=== PATIENT | male | born 1970 | race Caucasian/White ===

== ENCOUNTER 2017-03-29 05:31 | Emergency (ER) | payer OTHER ==
[~2017-03-29] VITALS: Ht 172.7 cm; Wt 68.0 kg
--- NOTE | 2017-03-29 05:31 | NUR ---
PT BIB SELF PT VERBALIZED AUDITORY HALLUCINATION AND SI SINCE 12 AM. PER PT PLANS TO TAKE A LOT OF DRUGS AND PILLS. DENIES ANY HI. PT CAME FROM [facility] REFERRED HERE FOR MEDICAL CLEARANCE PER PT . PLACED ON A GOWNED. REMOVED ALL BELONGINGS. AWAITING MD ORDER. VSS
--- NOTE | 2017-03-29 05:35 | NUR ---
TO BED 11 A 46 YO MALE BIB SELF AND PT VERBALIZED AUDITORY HALLUCINATION AND SI SINCE 12 AM. DENIES ANY HI. PER PATIENT HE "PLANS TO KILL HIMSELF BY OVERDOSING ON DRUGS." PATIENT IS AAOX3, AMBULATORY WITH STEADY GAIT. VSS. NO S/S OF ACUTE DISTRESS. INITIATED SAFETY AND SUICIDE PRECAUTIONS. GOWNED. BELONGINGS ACCOUNTED AND FROM PATIENT FOR SAFETY. ONGOING CLOSE MONITORING. AWAITING FOR ER MD SOLANO.
--- NOTE | 2017-03-29 06:03 | NUR ---
URINE SAMPLE COLLECTED SENT TO LAB
--- NOTE | 2017-03-29 06:05 | NUR ---
MINISTER AT BEDSIDE TO DRAW BLOOD.
[2017-03-29 06:17] LABS: BASOPHILS # (AUTO) 0.1 /CMM (0.0-0.2); BASOPHILS % (AUTO) 1.6 % (0.0-2.0); EOSINOPHILS # (AUTO) 0.1 /CMM (0.0-0.7); EOSINOPHILS % (AUTO) 3.2 % (0.0-6.0); HEMATOCRIT 43 % (39-51); HEMOGLOBIN 14.6 g/dL (13.5-17.5); LYMPHOCYTES # (AUTO) 1.8 /CMM (0.8-4.8); LYMPHOCYTES % (AUTO) 50.4 % (20.0-44.0); MEAN CORPUSCULAR HEMOGLOBIN 33 PG (26.0-33.0); MEAN CORPUSCULAR HGB CONC 34 g/dl (31.0-36.0); MEAN CORPUSCULAR VOLUME 96 fL (80-96); MONOCYTES # (AUTO) 0.4 /CMM (0.1-1.30); NEUTROPHILS # (AUTO) 1.2 /CMM (1.8-8.9); NEUTROPHILS % (AUTO) 33.8 % (43.0-81.0); PLATELET COUNT (AUTO) 121 /CMM (150-450); RDW COEFFICIENT OF VARIATION 15.6 (11.5-15.0); RED BLOOD CELL COUNT(AUTO) 4.44 MIL/uL (4.5-6.0); WHITE BLOOD COUNT (AUTO) 3.5 K/uL (4.3-11.0)
[2017-03-29 06:22] LABS: APPEARANCE,URINE CLEAR (CLEAR); BILIRUBIN,URINE NEGATIVE (NEGATIVE); BLOOD, URINE NEGATIVE Ery/uL (NEGATIVE); COLOR,URINE YELLOW (YELLOW); KETONES,URINE NEGATIVE (NEGATIVE); LEUKOCYTE ESTERASE ,URINE NEGATIVE (NEGATIVE); NITRITE, URINE NEGATIVE (NEGATIVE); PROTEIN,URINE NEGATIVE (NEGATIVE); UGLUCOSE NEGATIVE (NEGATIVE); UROBILINOGEN,URINE 0.2 EU/dL (0.2)
[2017-03-29 06:30] LABS: CALCIUM, SERUM 8.2 mg/dL (8.5-10.1); CARBON DIOXIDE 27 mmol/L (21-32); CHLORIDE 103 mmol/L (98-107); CREATININE 1.1 mg/dL (0.6-1.3); GLUCOSE 95 mg/dL (74-106); POTASSIUM 4.1 mmol/L (3.5-5.1); SODIUM SERUM 138 mmol/L (136-145); UREA NITROGEN, BLOOD 14 mg/dL (7-18)
--- NOTE | 2017-03-29 06:30 | NUR ---
HEAVY EQUIPMENT OPERATOR AT BEDSIDE
[2017-03-29] MEDS ORDERED: KETOROLAC TROMETHAMINE INJ 60 MG/2 ML VIAL IM ONE ×2 (06:33→07:00)
[2017-03-29 06:36] LABS: ALANINE AMINOTRANSFERASE 186 U/L (12-78); ALBUMIN 3.5 g/dL (3.4-5.0); ALKALINE PHOSPHATASE 187 U/L (46-116); ASPARTATE AMINOTRANSFERASE 289 U/L (15-37); BILIRUBIN,DIRECT 0.2 mg/dL (0.0-0.2); BILIRUBIN,TOTAL 0.4 mg/dL (0.2-1.0); SALICYLATE 7.2 mg/dL (2.8-20.0); TOTAL PROTEIN, SERUM 7.7 g/dL (6.4-8.2)
[2017-03-29 06:38] LABS: ACETAMINOPHEN 0 ug/ml (10-30); ALCOHOL, BLOOD < 3 mg/dL (0-0)
--- NOTE | 2017-03-29 07:01 | NUR ---
PT LEFT FOR CT VIA RNEY
[2017-03-29] MEDS ORDERED: TRIA60LO8 TP (07:20)
[2017-03-29] MEDS ORDERED: ACYC800T PO (07:20)
[2017-03-29] MEDS ORDERED: TEMA30CA5 PO (07:20)
[2017-03-29] MEDS ORDERED: FAMO20TA8 PO (07:20)
[2017-03-29] MEDS ORDERED: KETO120S2 TP (07:20)
[2017-03-29] MEDS ORDERED: FLUC200T PO (07:20)
[2017-03-29] MEDS ORDERED: ESCI20TA PO (07:20)
[2017-03-29] MEDS ORDERED: ALLO300T2 PO (07:20)
[2017-03-29] MEDS ORDERED: ONDA4SOL2 PO (07:20)
[2017-03-29] MEDS ORDERED: METH500T PO (07:20)
[2017-03-29] MEDS ORDERED: HALO2TAB PO (07:20)
[2017-03-29] MEDS ORDERED: TAPE100T2 PO (07:20)
[2017-03-29] MEDS ORDERED: SULF1TAB48 PO (07:20)
[2017-03-29] MEDS ORDERED: ELVI1TAB3 PO (07:20)
[2017-03-29] MEDS ORDERED: ALPR2TAB2 PO (07:20)
--- NOTE | 2017-03-29 07:20 | NUR ---
PT USES ANOTHER TOPICAL CREAM AT HOME FOR HIS FACE/SKIN. UNABLE TO FIND IT ON THE MED LIST.
--- NOTE | 2017-03-29 07:21 | NUR ---
REPORT GIVEN TO SHERIN GOLD FOR FRED.
[2017-03-29 08:00] VITALS: BP 131/85
--- NOTE | 2017-03-29 09:15 | NUR ---
Left Pinky RN voicemail regarding patient psych eval
--- NOTE | 2017-03-29 09:30 | NUR ---
CALLED FOR BREAKFAST TRAY
--- NOTE | 2017-03-29 11:49 | NUR ---
CALLED [facility] FOR TRANSPORT. ETA 1HR
--- NOTE | 2017-03-29 11:58 | NUR ---
GAVE REPORT TO ELIDA DUFF AT [facility].
--- NOTE | 2017-03-29 12:49 | NUR ---
[facility] HERE TO PICKED UP PT. DISCHARGE IN STABLE CONDITION TO ANOTHER PSYCH FACILITY
== END 2017-03-29 12:50 ==
LOC: ER 05:31
DX: Z00.8 Encounter for other general examination (principal); R05 Cough; R51 Headache; F32.9 Major depressive disorder, single episode, unspecified; F43.10 Post-traumatic stress disorder, unspecified; G40.909 Epilepsy, unspecified, not intractable, without status epilepticus; J44.9 Chronic obstructive pulmonary disease, unspecified; K21.9 Gastro-esophageal reflux disease without esophagitis; F25.9 Schizoaffective disorder, unspecified; Z88.8 Allergy status to other drugs, medicaments and biological substances; D49.6 Neoplasm of unspecified behavior of brain; F17.200 Nicotine dependence, unspecified, uncomplicated; R44.0 Auditory hallucinations
CPT/HCPCS: 36415; 70450; 71010; 80048; 80076; 80305; 80329; 81001; 85025; 96372; 99285; A4606; G0480 ×2; J1885; Z7610; 81000-TC; G6039-TC

== ENCOUNTER 2017-06-04 06:25 | Emergency (ER) | payer OTHER ==
[~2017-06-04] VITALS: Ht 175.3 cm; Wt 62.6 kg
[~2017-06-04 06:25] MED LIST: ACYC800T PO; ALLO300T2 PO; ALPR2TAB2 PO; ELVI1TAB3 PO; ESCI20TA PO; FAMO20TA8 PO; FLUC200T PO; HALO2TAB PO; KETO120S2 TP; METH500T PO; ONDA4SOL2 PO; SULF1TAB48 PO; TAPE100T2 PO; TEMA30CA5 PO; TRIA60LO8 TP
--- NOTE | 2017-06-04 06:40 | NUR ---
46 YO FEMALE BB SELF. PT IS ALERT X 3, STATES HE IS HERE FOR MEDICAL CLEARANCE, PT ONLY MEDICAL COMPLAINT IS ANXIETY. NAD NOTED, SKIN WARM AND DRY. WILL CONTINUE TO MONITOR, AWAITING ORDERS FROM PROVIDER
[2017-06-04] MEDS ORDERED: ALPRAZOLAM 0.5 MG TABLET ONE (07:11)
[2017-06-04] MEDS ORDERED: ESCITALOPRAM OXALATE (10 MG) 10 MG TABLET ONE (07:12)
[2017-06-04 07:13] LABS: BASOPHILS % (AUTO) 0.8 % (0.0-2.0); EOSINOPHILS # (AUTO) 0.3 /CMM (0.0-0.7); EOSINOPHILS % (AUTO) 4.5 % (0.0-6.0); HEMATOCRIT 47 % (39-51); HEMOGLOBIN 16.2 g/dL (13.5-17.5); LYMPHOCYTES # (AUTO) 2.6 /CMM (0.8-4.8); LYMPHOCYTES % (AUTO) 42.4 % (20.0-44.0); MEAN CORPUSCULAR HEMOGLOBIN 33 PG (26.0-33.0); MEAN CORPUSCULAR HGB CONC 34 g/dl (31.0-36.0); MEAN CORPUSCULAR VOLUME 96 fL (80-96); MONOCYTES # (AUTO) 0.7 /CMM (0.1-1.30); MONOCYTES % (AUTO) 11.4 % (2.0-12.0); NEUTROPHILS # (AUTO) 2.5 /CMM (1.8-8.9); NEUTROPHILS % (AUTO) 40.9 % (43.0-81.0); PLATELET COUNT (AUTO) 220 /CMM (150-450); RDW COEFFICIENT OF VARIATION 12.5 (11.5-15.0); RED BLOOD CELL COUNT(AUTO) 4.92 MIL/uL (4.5-6.0); WHITE BLOOD COUNT (AUTO) 6.1 K/uL (4.3-11.0)
[2017-06-04] MEDS: ALPRAZOLAM 0.25 MG TABLET PO ONE (07:18)
[2017-06-04] MEDS: ESCITALOPRAM OXALATE (10 MG) 10 MG TABLET PO ONE (07:18)
--- NOTE | 2017-06-04 07:18 | NUR ---
URINE SAMPLE COLLECTED SENT TO LAB
[2017-06-04 07:26] LABS: SODIUM SERUM 137 mmol/L (136-145)
[2017-06-04 07:27] LABS: CARBON DIOXIDE 26 mmol/L (21-32); CHLORIDE 99 mmol/L (98-107); GLUCOSE 90 mg/dL (74-106); POTASSIUM 4.2 mmol/L (3.5-5.1); UREA NITROGEN, BLOOD 15 mg/dL (7-18)
[2017-06-04 07:28] LABS: ALCOHOL, BLOOD < 3 mg/dL (0-0)
--- NOTE | 2017-06-04 08:05 | NUR ---
JOSE GIPSON RN CALLED [phone]. ETA ~ 60 MIN.
--- NOTE | 2017-06-04 09:23 | NUR ---
CASI AT BEDSIDE FOR EVAL
--- NOTE | 2017-06-04 09:29 | NUR ---
PSYCH [facility] FAXED BY CASI DUFF,PHYSICIAN ASSISTANT SURGERY TO [facility]. AND SO.CITLALI MCNALLY FOR ACCEPTANCE TO [facility]
--- NOTE | 2017-06-04 10:22 | NUR ---
CALLED TRANSPORT ETA IS 45 MIN PER NUNO
--- NOTE | 2017-06-04 11:13 | NUR ---
GAVE REPORT TO ROSARIO DUFF AT [facility] TRANSFER VIA [facility]
[2017-06-04 11:14] VITALS: BP 111/77
== END 2017-06-04 11:17 ==
LOC: ER 06:25
DX: F32.9 Major depressive disorder, single episode, unspecified (principal); F19.10 Other psychoactive substance abuse, uncomplicated; B20 Human immunodeficiency virus [HIV] disease; F43.10 Post-traumatic stress disorder, unspecified; J44.9 Chronic obstructive pulmonary disease, unspecified; K21.9 Gastro-esophageal reflux disease without esophagitis; Z88.8 Allergy status to other drugs, medicaments and biological substances; F17.200 Nicotine dependence, unspecified, uncomplicated
CPT/HCPCS: 36415; 80048-TC; 80305; 85025-TC; A4606; G0480; Z7610

== ENCOUNTER 2017-06-19 14:14 | Emergency (ER) | payer OTHER ==
[~2017-06-19] VITALS: Ht 172.7 cm; Wt 66.7 kg
--- NOTE | 2017-06-19 14:30 | NUR ---
PATIENT BIB RA FROM [facility] D/T REPORTED SEIZURE. PATIENT IS A/OX 2-3, BUT LETHARGIC. C/O GENERALIZED PAIN ALL OVER. BREATHING EVEN AND UNLABORED ON ROOM AIR. NO SOB. VITALS STABLE. SAFETY AND COMFORT MEASURES IN PLACE. AWAITING MD ORDERS.
[2017-06-19 14:48] LABS: BASOPHILS # (AUTO) 0.1 /CMM (0.0-0.2); EOSINOPHILS # (AUTO) 0.1 /CMM (0.0-0.7); EOSINOPHILS % (AUTO) 2.2 % (0.0-6.0); HEMATOCRIT 39 % (39-51); HEMOGLOBIN 12.6 g/dL (13.5-17.5); LYMPHOCYTES # (AUTO) 2.2 /CMM (0.8-4.8); LYMPHOCYTES % (AUTO) 34.4 % (20.0-44.0); MEAN CORPUSCULAR HEMOGLOBIN 31 PG (26.0-33.0); MEAN CORPUSCULAR HGB CONC 32 g/dl (31.0-36.0); MEAN CORPUSCULAR VOLUME 98 fL (80-96); MONOCYTES # (AUTO) 0.8 /CMM (0.1-1.30); NEUTROPHILS # (AUTO) 3.1 /CMM (1.8-8.9); NEUTROPHILS % (AUTO) 50.4 % (43.0-81.0); PLATELET COUNT (AUTO) 206 /CMM (150-450); RDW COEFFICIENT OF VARIATION 12.1 (11.5-15.0); WHITE BLOOD COUNT (AUTO) 6.3 K/uL (4.3-11.0)
--- NOTE | 2017-06-19 14:50 | NUR ---
NEW IV STARTED ON LAC, 20 G. BLOOD DRAWN AND SENT TO LAB.
[2017-06-19 14:59] LABS: CALCIUM, SERUM 8.6 mg/dL (8.5-10.1); CARBON DIOXIDE 28 mmol/L (21-32); CHLORIDE 103 mmol/L (98-107); CREATININE 1.2 mg/dL (0.6-1.3); GLUCOSE 75 mg/dL (74-106); SODIUM SERUM 137 mmol/L (136-145); UREA NITROGEN, BLOOD 20 mg/dL (7-18)
[2017-06-19] MEDS ORDERED: IV NS 0.9% 1,000 ML BAG IV ONE (15:00)
[2017-06-19 15:03] LABS: PROTHROMBIN TIME 10.4 SECS (9.5-12.7)
[2017-06-19 15:05] LABS: ALANINE AMINOTRANSFERASE 41 U/L (12-78); ALBUMIN 3.6 g/dL (3.4-5.0); ALKALINE PHOSPHATASE 98 U/L (46-116); ASPARTATE AMINOTRANSFERASE 57 U/L (15-37); BILIRUBIN,DIRECT 0.2 mg/dL (0.0-0.2); BILIRUBIN,TOTAL 0.6 mg/dL (0.2-1.0); TOTAL PROTEIN, SERUM 7.4 g/dL (6.4-8.2)
[2017-06-19 15:07] LABS: TROPONIN I < 0.017 ng/mL (0.00-0.056)
[2017-06-19 16:17] VITALS: BP 106/66
[2017-06-19 20:11] LABS: APPEARANCE,URINE Clear (CLEAR); BILIRUBIN,URINE SMALL (NEGATIVE); BLOOD, URINE Negative Ery/uL (NEGATIVE); COLOR,URINE Dark (YELLOW); KETONES,URINE Negative (NEGATIVE); LEUKOCYTE ESTERASE ,URINE Negative (NEGATIVE); NITRITE, URINE Negative (NEGATIVE); PH,URINE 5.5 (5.0-8.0); PROTEIN,URINE Negative (NEGATIVE); UGLUCOSE Negative (NEGATIVE); UROBILINOGEN,URINE 0.2 EU/dL (0.2)
[2017-06-19 20:25] LABS: BACTERIA,URINE None seen /HPF (None Seen); RBC,URINE 0-2 /HPF (0-2); SQUAMOUS EPITHELIAL CELL,UR Few /HPF (None Seen); WBC,URINE 0-2 /HPF (0-3)
--- NOTE | 2017-06-19 21:30 | NUR ---
PET TEAM AT BEDSIDE FOR PYSCH EVAL .
[2017-06-19] MEDS ORDERED: ACETAMINOPHEN 325 MG TABLET PO ONE (22:30)
[2017-06-19] MEDS ORDERED: ACETAMINOPHEN 325 MG TABLET ONE (22:43)
--- NOTE | 2017-06-20 13:18 | NUR ---
FOLLOWED UP WITH [facility] [place]. STILL NO MALE BEDS AVAILABLE
--- NOTE | 2017-06-21 01:30 | NUR ---
BREANNA AT BEDSIDE FOR TRANSPORT TO [facility].
== END 2017-06-21 01:57 ==
LOC: ER 14:15
DX: R07.89 Other chest pain (principal); B20 Human immunodeficiency virus [HIV] disease; G40.909 Epilepsy, unspecified, not intractable, without status epilepticus; F17.200 Nicotine dependence, unspecified, uncomplicated; F32.9 Major depressive disorder, single episode, unspecified; F43.10 Post-traumatic stress disorder, unspecified; J44.9 Chronic obstructive pulmonary disease, unspecified; K21.9 Gastro-esophageal reflux disease without esophagitis; R45.851 Suicidal ideations; Z88.8 Allergy status to other drugs, medicaments and biological substances; Z88.1 Allergy status to other antibiotic agents
CPT/HCPCS: 36415; 71010-TC; 80048-TC; 80076-TC; 80305; 81000-TC; 84484-TC; 85025-TC; 85730-TC; A4606; J7030; Z7610

== ENCOUNTER 2017-12-03 23:57 | Emergency (ER) | payer OTHER ==
[~2017-12-03] VITALS: Ht 172.7 cm; Wt 72.6 kg
--- NOTE | 2017-12-04 00:35 | NUR ---
BIBSELF, WANTS TO BE MEDICALLY CLEARED TO GO TO SO .CITLALI MCNALLY ADMITS TO ETOH AND SUBOXONE USE. PT AOX3 RR EVEN AND UNLABORED. NO SOB NOTED. NAD NOTED. NO NVD AT THIS TIME. URINE COLLECTED. PT DENIES SI/HI AT THIS TIME.
--- NOTE | 2017-12-04 00:39 | NUR ---
LAB AT BEDSIDE FOR BLOOD DRAW
--- NOTE | 2017-12-04 00:54 | NUR ---
PER SO CITLALI MCNALLY STATES PT LEFT FACILITY
--- NOTE | 2017-12-04 00:56 | NUR ---
ART AT BEDSIDE FOR EVAL.
[2017-12-04 01:23] LABS: BASOPHILS % (AUTO) 0.5 % (0.0-2.0); EOSINOPHILS % (AUTO) 0.5 % (0.0-6.0); HEMATOCRIT 46 % (39-51); HEMOGLOBIN 15.7 g/dL (13.5-17.5); LYMPHOCYTES # (AUTO) 2.2 /CMM (0.8-4.8); LYMPHOCYTES % (AUTO) 26.3 % (20.0-44.0); MEAN CORPUSCULAR HEMOGLOBIN 31 PG (26.0-33.0); MEAN CORPUSCULAR HGB CONC 34 g/dl (31.0-36.0); MEAN CORPUSCULAR VOLUME 91 fL (80-96); MONOCYTES % (AUTO) 11.7 % (2.0-12.0); NEUTROPHILS # (AUTO) 5.2 /CMM (1.8-8.9); PLATELET COUNT (AUTO) 215 /CMM (150-450); RDW COEFFICIENT OF VARIATION 13.9 (11.5-15.0); RED BLOOD CELL COUNT(AUTO) 5.09 MIL/uL (4.5-6.0); WHITE BLOOD COUNT (AUTO) 8.5 K/uL (4.3-11.0)
[2017-12-04 01:23] LABS: APPEARANCE,URINE CLEAR (CLEAR); BILIRUBIN,URINE NEGATIVE (NEGATIVE); BLOOD, URINE NEGATIVE Ery/uL (NEGATIVE); COLOR,URINE YELLOW (YELLOW); KETONES,URINE 2+ (NEGATIVE); LEUKOCYTE ESTERASE ,URINE NEGATIVE (NEGATIVE); NITRITE, URINE NEGATIVE (NEGATIVE); PROTEIN,URINE NEGATIVE (NEGATIVE); UGLUCOSE NEGATIVE (NEGATIVE); UROBILINOGEN,URINE 0.2 EU/dL (0.2)
[2017-12-04 01:31] LABS: BACTERIA,URINE None seen /HPF (None Seen); RBC,URINE 0-2 /HPF (0-2); SQUAMOUS EPITHELIAL CELL,UR Few /HPF (None Seen); WBC,URINE 0-2 /HPF (0-3)
[2017-12-04 01:32] LABS: MUCUS,URINE Few /LPF (None Seen)
[2017-12-04 01:41] LABS: CALCIUM, SERUM 9.1 mg/dL (8.5-10.1); CARBON DIOXIDE 27 mmol/L (21-32); CHLORIDE 100 mmol/L (98-107); GLUCOSE 94 mg/dL (74-106); SODIUM SERUM 138 mmol/L (136-145); UREA NITROGEN, BLOOD 19 mg/dL (7-18)
[2017-12-04 01:45] LABS: ACETAMINOPHEN 0 ug/ml (10-30); ALANINE AMINOTRANSFERASE 32 U/L (12-78); ALBUMIN 4.6 g/dL (3.4-5.0); ALKALINE PHOSPHATASE 135 U/L (46-116); ASPARTATE AMINOTRANSFERASE 28 U/L (15-37); BILIRUBIN,DIRECT 0.2 mg/dL (0.0-0.2); BILIRUBIN,TOTAL 0.7 mg/dL (0.2-1.0); SALICYLATE 6.1 mg/dL (2.8-20.0); TOTAL PROTEIN, SERUM 9.6 g/dL (6.4-8.2)
[2017-12-04 01:46] LABS: ALCOHOL, BLOOD < 3 mg/dL (0-0)
--- NOTE | 2017-12-04 04:48 | NUR ---
Patient discharged to home in stable condition. Written and verbal after care instructions given. Patient verbalizes understanding of instruction. ambulatory with a steady gait.
[2017-12-04 04:49] VITALS: BP 126/77
== END 2017-12-04 04:52 | disposition home or self-care (01) ==
LOC: ER 23:59
DX: R45.851 Suicidal ideations (principal); J44.9 Chronic obstructive pulmonary disease, unspecified; K21.9 Gastro-esophageal reflux disease without esophagitis; F20.9 Schizophrenia, unspecified; F32.9 Major depressive disorder, single episode, unspecified; F43.10 Post-traumatic stress disorder, unspecified; Z88.8 Allergy status to other drugs, medicaments and biological substances; Z88.1 Allergy status to other antibiotic agents; F17.200 Nicotine dependence, unspecified, uncomplicated; Z60.2 Problems related to living alone; Z79.899 Other long term (current) drug therapy
CPT/HCPCS: 36415; 80048; 80076; 80305; 80329; 81001; 85025; 99284; A4606; G0480 ×2; Z7610; 81000-TC

== ENCOUNTER 2018-10-18 11:37 | Inpatient (IN) | payer OTHER ==
[~2018-10-18] VITALS: Ht 167.6 cm; Wt 74.0 kg
[~2018-10-18 11:37] MED LIST changes: -KETO120S2 TP; +KETO120S3 TP
--- NOTE | 2018-10-18 11:50 | NUR ---
Chest Pain "woke up with pains in my chest this morning". PT IS AOX4, AMBULATORY, RESPIRATIONS EVEN AND UNLABORED. PAIN LEVEL 10/10 AND FEELINGS OF PRESSURE. APPEARS LETHARGIC. SKIN WARM TO TOUCH, DRY, INTACT. READY FOR EVAL. WILL CONT TO MONITOR.
--- NOTE | 2018-10-18 12:03 | NUR ---
WASHER AND CRUSHER TENDER MARSII AT BEDSIDE
--- NOTE | 2018-10-18 12:20 | NUR ---
LABS AND BLOOD CULTURES DRAWN AND SENT TO LAB
--- NOTE | 2018-10-18 12:27 | NUR ---
PROVIDED BLANKET AND ICE WATER FOR COMFORT
[2018-10-18 12:28] LABS: BASOPHILS % (AUTO) 0.8 % (0.0-2.0); EOSINOPHILS % (AUTO) 5.8 % (0.0-6.0); HEMATOCRIT 40 % (39-51); HEMOGLOBIN 13.4 g/dL (13.5-17.5); LYMPHOCYTES % (AUTO) 34.7 % (20.0-44.0); MEAN CORPUSCULAR HGB CONC 34 g/dl (31.0-36.0); MEAN CORPUSCULAR VOLUME 102 fL (80-96); MONOCYTES # (AUTO) 0.5 /CMM (0.1-1.30); MONOCYTES % (AUTO) 8.3 % (2.0-12.0); NEUTROPHILS % (AUTO) 50.4 % (43.0-81.0); PLATELET COUNT (AUTO) 222 /CMM (150-450); RED BLOOD CELL COUNT(AUTO) 3.92 MIL/uL (4.5-6.0); WHITE BLOOD COUNT (AUTO) 5.9 K/uL (4.3-11.0)
[2018-10-18 12:39] LABS: CALCIUM, SERUM 8.6 mg/dL (8.5-10.1); CARBON DIOXIDE 27 mmol/L (21-32); CHLORIDE 106 mmol/L (98-107); CREATININE 1.3 mg/dL (0.6-1.3); GLUCOSE 111 mg/dL (74-106); POTASSIUM 4.3 mmol/L (3.5-5.1); SODIUM SERUM 143 mmol/L (136-145); UREA NITROGEN, BLOOD 20 mg/dL (7-18)
--- NOTE | 2018-10-18 12:42 | NUR ---
XRAY AT BEDSIDE
[2018-10-18 12:52] LABS: ALANINE AMINOTRANSFERASE 47 U/L (12-78); ALKALINE PHOSPHATASE 141 U/L (46-116); ASPARTATE AMINOTRANSFERASE 36 U/L (15-37); B-TYPE NATRIURETIC PEPTIDE 259 PG/ML (0-125); BILIRUBIN,DIRECT 0.1 mg/dL (0.0-0.2); BILIRUBIN,TOTAL 0.4 mg/dL (0.2-1.0); TOTAL PROTEIN, SERUM 7.5 g/dL (6.4-8.2)
--- NOTE | 2018-10-18 12:55 | NUR ---
DR BALDERAS AT BEDSIDE
--- NOTE | 2018-10-18 13:15 | NUR ---
PT ASLEEP IN BED, VSS, EASILY AROUSED.
--- NOTE | 2018-10-18 13:36 | NUR ---
FLU SWAB COLLECTED AND SENT TO LAB. AWAITING URINE SAMPLE
[2018-10-18] MEDS ORDERED: ACETAMINOPHEN ES 500 MG TABLET ONE (13:50)
--- NOTE | 2018-10-18 13:53 | NUR ---
MONITOR SHOWING PT IS HYPOTENSIVE. SWITCHED TO LEFT ARM, RECHECK VITALS. BP LAYING 103/68 BP SITTING 89/57 BP STANDING 86/65. AWARE
[2018-10-18] MEDS ORDERED: ACETAMINOPHEN 325 MG TABLET PO ONE (14:00)
--- NOTE | 2018-10-18 14:10 | NUR ---
CESAR, SANDSTONE INSPECTOR REPAIRER AT BEDSIDE TO DISCUSS ADMISSION
--- NOTE | 2018-10-18 14:20 | NUR ---
PANEL CALLED. AWAITING CALL BACK FROM DR SOOD
[2018-10-18 14:22] LABS: APPEARANCE,URINE CLEAR (CLEAR); BILIRUBIN,URINE NEGATIVE (NEGATIVE); BLOOD, URINE NEGATIVE Ery/uL (NEGATIVE); COLOR,URINE YELLOW (YELLOW); KETONES,URINE NEGATIVE (NEGATIVE); LEUKOCYTE ESTERASE ,URINE NEGATIVE (NEGATIVE); NITRITE, URINE NEGATIVE (NEGATIVE); PH,URINE 6.5 (5.0-8.0); PROTEIN,URINE NEGATIVE (NEGATIVE); UGLUCOSE NEGATIVE (NEGATIVE); UROBILINOGEN,URINE 0.2 EU/dL (0.2)
[2018-10-18] MEDS ORDERED: ASPIRIN 325 MG TABLET ONE (14:27)
[2018-10-18] MEDS ORDERED: ASPIRIN 325 MG TABLET PO ONE (14:30)
[2018-10-18] MEDS ORDERED: IV NS 0.9% 1,000 ML BAG IV ONE ×2 (14:30→15:00)
--- NOTE | 2018-10-18 14:38 | NUR ---
PT TAKEN TO CT VIA RMANOJ.
--- NOTE | 2018-10-18 14:48 | NUR ---
PT RETURNED FROM CT RESTING IN [facility]
--- NOTE | 2018-10-18 15:31 | NUR ---
Patient is resting comfortably in bed with eyes closed. Easily aroused. VSS
--- NOTE | 2018-10-18 15:44 | NUR ---
REPORT GIVEN TO SHERIN COLES FOR 323-1 TELE
[2018-10-18] MEDS ORDERED: ACETAMINOPHEN 325 MG TABLET PO PRN (16:00)
[2018-10-18] MEDS ORDERED: MAG HYDROX/AL HYDROX/SIMETH 30 ML UDC PO PRN (16:00)
[2018-10-18] MEDS ORDERED: ONDANSETRON HCL 4 MG/5 ML SOLUTION PO SCH (16:00)
[2018-10-18] MEDS ORDERED: TRIAMCINOLONE ACETONIDE TP SCH (16:00)
[2018-10-18] MEDS ORDERED: ONDANSETRON HCL/PF 4 MG/2 ML VIAL IVP PRN (16:00)
[2018-10-18] MEDS ORDERED: Z GUARD REMEDY 2 OZ OINT TP PRN (16:00)
[2018-10-18] MEDS ORDERED: MAGNESIUM HYDROXIDE 30 ML UDC PO PRN (16:00)
--- NOTE | 2018-10-18 16:45 | NUR ---
TRANSFERRED PT TO 323-1 TELE WITH EMT
[2018-10-18 17:00] VITALS: BP 104/71
[2018-10-18] MEDS ORDERED: TAPENTADOL HYDROCHLORIDE 100 MG PO SCH (17:00)
--- NOTE | 2018-10-18 17:00 | NUR ---
TELE/RN OPENING NOTE THE PATIENT IS RECEIVED O ALCIDES BILLINGSLEY. ABLE TO TRANSFER SELF TO BED. ALERT AND ORIENTED X4. DENIES PAIN, DENIES SOB. RESPIRATION REGULAR AND UNLABORED. ORIENTATION IS GIVEN TO THE UNIT AND ROOM AND THE PATIENT VERBALIZED UNDERSTANDING. LAC G 20 PATENT AND SALINE LOCKED. BED LOW AND LOCKED. SIDE RAILS UP X2. WILL CONTINUE TO MONITOR.
[2018-10-18] MEDS: ALPRAZOLAM 1 MG TABLET PO SCH ×2 (17:20→18:02)
[2018-10-18] MEDS: METHOCARBAMOL (500MG) 500 MG TABLET PO SCH (18:02)
--- NOTE | 2018-10-18 18:36 | NUR ---
TELE/RN NOTE THE PATIENT ALERT AND ORIENTED X4. IN ROOM AIR AND DENIES SOB AT THIS TIME. RESPIRATION REGULAR AND UNLABORED. DENIES PAIN. IN NO APPARENT DISTRESS. LAC G 20 PATENT AND SALINE LOCKED. BED LOW AND LOCKED. SIDE RAILS UP X2. CALL LIGHT WITHIN REACH. WILL ENDORSE TO INSPECTOR OUTSIDE STEAM DISTRIBUTION.
[2018-10-18 20:00] VITALS: BP 94/60
--- NOTE | 2018-10-18 20:00 | NUR ---
RECIEVING NOTES: IN BED ASLEEP RESP EVEN AND UNLABORED RATE 18/*MIN. ROOM AIR. WHEN ARM LIGHTLY TOUCH AND NAME SPOKEN WOKE UP ALERT AND ORIENTATED, ASKING FOR PUDDING TWO!! HE IS SMILING. HE IS APACED 60 ON THE MONITOR. ALL CALL LIG WITHIN REACH.
[2018-10-18] MEDS ORDERED: HALOPERIDOL 1 MG TABLET PO SCH (22:00)
[2018-10-18] MEDS: HALOPERIDOL LACTATE 10 MG/5 ML UDC PO SCH (22:00)
--- NOTE | 2018-10-18 22:00 | NUR ---
BEHAVIIOR: informed the patient that we needed to check his belongings , this is policy, and we would do this right here in front of him. He became angry and verbally abusive calling the HIGH SCHOOL BAND TEACHER a LIAR, and that nurses were all drug users and just wanted to steal his medication," because this is what happened before". Yelling loudly and using foul language. Guard was able to take his trading assistant away. after 30 minutes of his anger and yelling he allowed me to count his medications and label for the pharmacist , he wanted me to place the receipts in the front of his chart, so I did, in the inside cover.. He refused the Haldol, stating this is for people who have psych issues. took the restoril and the one christine stating this doesn't do anything for him.. snack served and shortly after midnight was asleep.
[2018-10-18] MEDS: HYDROCODONE/APAP 5/325MG 1 EACH TABLET PO PRN (22:07)
[2018-10-18] MEDS: TEMAZEPAM 15 MG CAPSULE PO SCH ×2 (22:08→23:08)
--- NOTE | 2018-10-19 07:15 | NUR ---
REPORTING DEVELOPER INITIAL NOTES Report received at bedside. Patient received in bed, sleeping comfortably, easily aroused. Not in any type of distress. No facial grimacing or moaning noted. Denies chest pain at the moment. No SOB/labored breathing noted. On antiviral treatment for HIV/AIDS. Safety measures in place. Will continue to monitor and assess patient. Call light within reach. TELE: A-pacing 60
[2018-10-19 07:38] LABS: BASOPHILS % (AUTO) 1.3 % (0.0-2.0); EOSINOPHILS % (AUTO) 7.1 % (0.0-6.0); HEMATOCRIT 38 % (39-51); HEMOGLOBIN 12.7 g/dL (13.5-17.5); LYMPHOCYTES # (AUTO) 2.1 /CMM (0.8-4.8); LYMPHOCYTES % (AUTO) 53.5 % (20.0-44.0); MEAN CORPUSCULAR HGB CONC 34 g/dl (31.0-36.0); MEAN CORPUSCULAR VOLUME 102 fL (80-96); MONOCYTES # (AUTO) 0.4 /CMM (0.1-1.30); NEUTROPHILS % (AUTO) 27.1 % (43.0-81.0); PLATELET COUNT (AUTO) 184 /CMM (150-450); RED BLOOD CELL COUNT(AUTO) 3.67 MIL/uL (4.5-6.0); WHITE BLOOD COUNT (AUTO) 3.9 K/uL (4.3-11.0)
[2018-10-19 07:56] LABS: CALCIUM, SERUM 8.4 mg/dL (8.5-10.1); CREATININE 1.1 mg/dL (0.6-1.3); MAGNESIUM 2.1 mg/dL (1.8-2.4); PHOSPHORUS 3.4 mg/dL (2.5-4.9); POTASSIUM 4.3 mmol/L (3.5-5.1)
[2018-10-19 08:00] VITALS: BP 111/66
[2018-10-19 08:31] LABS: THYROID STIMULATING HORMONE 2.762 uIU/mL (0.358-3.74)
[2018-10-19 08:42] LABS: EOSINOPHILS % (MANUAL) 7 % (0-4); MONOCYTES % (MANUAL) 17 % (0-11.0); NEUTROPHILS % (MANUAL) 25 (42-76); REACTIVE LYMPHOCYTES 9 % (0-0)
[2018-10-19 08:43] LABS: LYMPHOCYTES % (MANUAL) 42 % (16-48)
[2018-10-19] MEDS: METHOCARBAMOL (500MG) 500 MG TABLET PO SCH ×3 (08:49→16:29)
[2018-10-19] MEDS: ALPRAZOLAM 1 MG TABLET PO SCH ×2 (08:49→16:29)
[2018-10-19] MEDS: SULFAMETH/TRIMETH 800/160 MG 1 UDTAB TABLET PO SCH (08:49)
[2018-10-19] MEDS: ACYCLOVIR 800 MG TABLET PO SCH (08:49)
[2018-10-19] MEDS: FAMOTIDINE (20 MG) 20 MG TABLET PO SCH (08:49)
[2018-10-19] MEDS: ESCITALOPRAM OXALATE (10 MG) 10 MG TABLET PO SCH (08:49)
[2018-10-19] MEDS: ALLOPURINOL 100 MG TABLET PO SCH (08:49)
[2018-10-19] MEDS ORDERED: FLUCONAZOLE (100 MG) 100 MG TABLET PO SCH (09:00)
[2018-10-19] MEDS ORDERED: [UNRECOGNIZED DRUG - OTHER] PO SCH (09:00)
--- NOTE | 2018-10-19 11:10 | NUR ---
MS RN NOTES Called Pharmacy ([facility]) to follow up on delivery for Nizoral Shampoo. Will wait for delivery.
[2018-10-19] MEDS: KETOCONAZOLE SHAMPOO 120 ML BOTTLE TP SCH (11:45)
--- NOTE | 2018-10-19 15:04 | NUR ---
MS SHERIN NOTES Sample Case Porter went to see patient. Per Sample Case Porter, patient refused [facility] and couple other shelters offered. Patient insisted to go back to [place] to undisclosed address. Addendum: 10/19/18 at 1518 by RUBY STEVE RN Patient verified if he is getting discharged today, on the day before All. Confirmed to patient that he is cleared to be discharge home. Patient started complaining, stating, "it's not right to be discharge on the day before All. At least release me on morning!"
--- NOTE | 2018-10-19 15:09 | NUR ---
MS RN NOTES Patient getting ready to shower before discharge. Patient requested to remove IV: cath tip intact with no bleeding noted. Covered with gauze and tape.
[2018-10-19 16:00] VITALS: BP 132/79
[2018-10-19] MEDS ORDERED: PERMETHRIN 5% CRM 60 GM TUBE TP ONE (16:00)
[2018-10-19] MEDS: HYDROCODONE/APAP 5/325MG 1 EACH TABLET PO PRN ×2 (16:36→21:10)
--- NOTE | 2018-10-19 18:29 | NUR ---
MS RN CLOSING NOTES Patient remained in bed, intermittently sleeping, easily aroused. Alert and oriented x4, verbally respponsive. Complained of pain with help of pain mgmt. Not in any type of distress. No SOB or labored breathing noted. Afebrile. All due meds given and tolerated. Kept patient clean and dry. Elimite cream applied @1600: ready to be washed after 8-12hours after. Okay to discharge after elimite cream wash off. All needs provided and met. Safety measures in place. Bed in locked and lowest position with call light within reach. Will endorse to oncoming shift nurse
[2018-10-19 20:00] VITALS: BP 100/63
--- NOTE | 2018-10-19 20:00 | NUR ---
MS/RN OPENING NOTES RECEIVED PATIENT IN BED, AWAKE, ALERT X3, ABLE TO VERBALIZE NEEDS, RESPONSIVE TO CARE, PLAN OF CARE DISCUSSED, ON ELIMATE CREAM APPLIED 1600, TO BE WASHED OFF 8 TO 12 HOURS BY 4 IN THE MORNING. ORDER FOR DISCHARGE BY MD, PATIENT REFUSED TO DISCHARGE TO A [facility]P AND PREFERRED TO BE BACK IN PREFERRED ADDRESS. CALL LIGHTS WITHIN REACH, BED LOCKED. PROVIDED SNACKS. RECEIVED ENDORSEMENT FORM AM RN FOR FRED.
[2018-10-19] MEDS: HALOPERIDOL LACTATE 10 MG/5 ML UDC PO SCH (21:11)
--- NOTE | 2018-10-19 21:12 | NUR ---
MS/RN NOTES REQUESTED FOR PAIN MEDICATION, IN CHEST AND UPPER BODY, WILL MONITOR.NORCO 5-325 MG PO GIVEN.
--- NOTE | 2018-10-19 21:29 | NUR ---
MS/RN NOTES MD GONZALEZ WAS MADE AWARE THAT PATIENT REFUSE TO LEAVE AT 12 MIDNIGHT AFTER ELAMITE CREAM IS RINSED, BUT WILLING TO BE DC IN MORNING INSTEAD, .
--- NOTE | 2018-10-20 01:00 | NUR ---
MS/RN NOTES RESTORIL 2 CAPLETS 30MG TOTAL WAS RETURNED WITH WITNESS BY SHERIN BROWNING.
--- NOTE | 2018-10-20 01:02 | NUR ---
MS/RN NOTES PATIENT REQUESTING FOR PAIN MEDICATION. JUST HAD A BATH TO RINSE OF ELIMITE CREAM, AMBULATED TO BATHROOM, AND NOW IN BED, VERBALIZED THE PAIN. WILL ADMINISTER MEDICATION NORCO 5-325 MG PO ONCE IT IS DUE.
[2018-10-20] MEDS: HYDROCODONE/APAP 5/325MG 1 EACH TABLET PO PRN (01:11)
--- NOTE | 2018-10-20 06:16 | NUR ---
323-1 MS/RN NOTES RECEIVED PATIENT IN BED, ALERT, ORIENTED, DISCUSSED PLAN OF CARE, , INFORMED OF DISCHARGE, ELAMITE CREAM WASHED AFTERWARDS. DISCHARGE PLAN REQUESTED WITH ORDER
--- NOTE | 2018-10-20 06:38 | NUR ---
MS/RN NOTES 'PATIENT WAS INFORMED ABOUT DISCHARGE PLAN AGREED TO BE DISCHARGE TO HIS PLACE OF PREFERENCE, IN [place] DISCHARGE PAPER TO BE SIGNED, EDUCATED FOR SAFETY, TO CHECK VITAL SIGNS, REMOVE ID BAND. WILL F/U. WILL F/U FOR TOKENS FOR THE BUS IN AM, TO ALSO TOMBSTONE CARVER MEDICATIONS STORED IN THE PHARMACY. VERBALIZED UNDERSTANDING.
--- NOTE | 2018-10-20 07:05 | NUR ---
MS RN INITIAL NOTES Report received at bedside. Patient received in bed, sleeping comfortably, easily aroused. Not in any type of distress. No facial grimacing or moaning noted. No SOB/labored breathing noted. Planned discharge today. Will continue to monitor and assess patient until discharge.
[2018-10-20] MEDS: ESCITALOPRAM OXALATE (10 MG) 10 MG TABLET PO SCH (08:43)
[2018-10-20] MEDS: ACYCLOVIR 800 MG TABLET PO SCH (08:43)
[2018-10-20] MEDS: ALLOPURINOL 100 MG TABLET PO SCH (08:44)
[2018-10-20] MEDS: SULFAMETH/TRIMETH 800/160 MG 1 UDTAB TABLET PO SCH (08:44)
[2018-10-20] MEDS: FAMOTIDINE (20 MG) 20 MG TABLET PO SCH (08:44)
[2018-10-20] MEDS: METHOCARBAMOL (500MG) 500 MG TABLET PO SCH (08:44)
[2018-10-20] MEDS: ALPRAZOLAM 1 MG TABLET PO SCH (08:45)
--- NOTE | 2018-10-20 11:17 | NUR ---
MS MEDICAL DERMATOLOGIST NOTES Picked up all personal medications from Pharmacy and handed $4 dollar for [facility]. Signed pharmacy bag
--- NOTE | 2018-10-20 11:55 | NUR ---
MS KEYBOARDING CLERK NOTES Patient cleared for discharge by . Elimite cream application and administration done as ordered. Discharge instruction provided to patient: verbalized understanding. Discharge papers form signed and provided. Belongings form signed. All belongings with patient including (personal) medications from the pharmacy. Assisted patient to get ready. IV access removed yesterday. Some photos taken (placed in chart), some were refused by patient. All due meds given and tolerated. Afebrile. Denies any pain. Not in any type of distress. No SOB/labored breathing noted. All needs provided and met. Provided bus fair. ID band removed. Escorted patient the lobby in stable condition. All questions and concerns address.
[2018-10-20] MEDS: KETOCONAZOLE SHAMPOO 120 ML BOTTLE TP SCH (12:00)
== END 2018-10-20 11:00 | disposition home or self-care (01) | DRG 203 ==
LOC: ER 11:40 → TELE 16:22 → MED 10-19 10:07 → UNDODISIN 10-20 11:00
PROVIDERS: ADMIT Internal Medicine; ATTEND Internal Medicine
DX: M94.0 Chondrocostal junction syndrome [Tietze] (principal); F25.9 Schizoaffective disorder, unspecified; G40.909 Epilepsy, unspecified, not intractable, without status epilepticus; D63.8 Anemia in other chronic diseases classified elsewhere; J44.9 Chronic obstructive pulmonary disease, unspecified; K21.9 Gastro-esophageal reflux disease without esophagitis; Z86.011 Personal history of benign neoplasm of the brain; G89.4 Chronic pain syndrome; Z92.21 Personal history of antineoplastic chemotherapy; F43.10 Post-traumatic stress disorder, unspecified; Z95.0 Presence of cardiac pacemaker; F32.9 Major depressive disorder, single episode, unspecified; Z88.8 Allergy status to other drugs, medicaments and biological substances; Z79.899 Other long term (current) drug therapy; Z59.0 Homelessness; I49.9 Cardiac arrhythmia, unspecified; J98.11 Atelectasis
CPT/HCPCS: 36415; 70450-TC; 71045-TC; 80048-TC; 80061-TC; 80076-TC; 81000-TC; 83605-TC; 83735-TC; 83880; 84100-TC; 84439-TC; 84443-TC; 84484-TC; 85025-TC; 85730-TC; 87040-TC; 87081-TC; 87086-TC; 87400; 93307-TC; A4606; G0378; J7030; Z7610